=== PATIENT | male | born 1940 | race Two or more races ===

== ENCOUNTER 2019-04-26 19:52 | Emergency (ER) | payer OTHER ==
[~2019-04-26] VITALS: Ht 177.8 cm; Wt 86.2 kg
[2019-04-26] MEDS ORDERED: LIDOCAINE 1%-EPI 1:100,000 20 ML VIAL ONE (20:09)
--- NOTE | 2019-04-26 20:10 | NUR ---
PRESENTED TO THE ER WITH L TOE LACERATION WITH MINIMAL PAIN AND BLEEDING. LAST TDAP: 01/2011.
[2019-04-26] MEDS ORDERED: LIDOCAINE 1%-EPI 1:100,000 20 ML VIAL TP ONE (20:30)
[2019-04-26] MEDS ORDERED: TDAP [DIPH/PERTUSSIS/TET] 0.5 ML VIAL IM ONE ×2 (20:30→20:37)
--- NOTE | 2019-04-26 21:03 | NUR ---
AT [facility] BED SIDE FOR SUTURING.
[2019-04-26] MEDS ORDERED: CEPHALEXIN MONOHYDRATE 500 MG CAPSULE PO ONE ×2 (21:30→21:32)
--- NOTE | 2019-04-26 21:45 | NUR ---
PT W/ 9 INTACT SUTURES ON THE L GRAT TOE. NO BLEEDING OR DISCHARGES. SUTURES WERE COVERED W/ DD AND SPECIAL SHOE WAS PROVIDED. Patient discharged to home in stable condition.RX AND Written and verbal after care instructions given. Patient verbalizes understanding of instruction.
[2019-04-26 22:03] VITALS: BP 148/86
== END 2019-04-26 21:45 | disposition home or self-care (01) ==
LOC: ER 19:54
DX: S91.112A Laceration without foreign body of left great toe without damage to nail, initial encounter (principal); I10 Essential (primary) hypertension; J43.9 Emphysema, unspecified; N40.0 Benign prostatic hyperplasia without lower urinary tract symptoms; Z60.2 Problems related to living alone; W01.198A Fall on same level from slipping, tripping and stumbling with subsequent striking against other object, initial encounter; Y93.89 Activity, other specified; Y92.000 Kitchen of unspecified non-institutional (private) residence as the place of occurrence of the external cause; Y99.8 Other external cause status
CPT/HCPCS: 12002; 90471; 90715; 99283; A6402 ×3; A6403; J3490

== ENCOUNTER 2019-11-22 18:36 | Emergency (ER) | payer OTHER ==
[~2019-11-22] VITALS: Ht 177.8 cm; Wt 90.3 kg
--- NOTE | 2019-11-22 18:47 | NUR ---
[id number] FROM HOME, C/O DIZZINESS, "FEEL SICK", PT AAOX4, -SOB, NAD NOTED, VSS, PENDING MD QUILES
[2019-11-22] MEDS ORDERED: IV NS 0.9% 500 ML BAG IV ONE ×2 (19:00→20:30)
[2019-11-22 19:15] LABS: BASOPHILS # (AUTO) 0.1 /CMM (0.0-0.2); BASOPHILS % (AUTO) 0.6 % (0.0-2.0); EOSINOPHILS % (AUTO) 0.1 % (0.0-6.0); HEMATOCRIT 39 % (39-51); HEMOGLOBIN 12.5 g/dL (13.5-17.5); LYMPHOCYTES # (AUTO) 1.3 /CMM (0.8-4.8); MEAN CORPUSCULAR HGB CONC 32 g/dl (31.0-36.0); MEAN CORPUSCULAR VOLUME 86 fL (80-96); MONOCYTES # (AUTO) 1.1 /CMM (0.1-1.30); MONOCYTES % (AUTO) 8.3 % (2.0-12.0); NEUTROPHILS # (AUTO) 10.4 /CMM (1.8-8.9); PLATELET COUNT (AUTO) 325 /CMM (150-450); RED BLOOD CELL COUNT(AUTO) 4.51 MIL/uL (4.5-6.0); WHITE BLOOD COUNT (AUTO) 12.8 K/uL (4.3-11.0)
--- NOTE | 2019-11-22 19:20 | NUR ---
PT RECEIVED FROM ALLISON VARELA FOR MIGUELINA.PT IN BED AWAKE AND ALERT. NO RESP DISTRESS
--- NOTE | 2019-11-22 19:22 | NUR ---
PT PLACED ON O2 VIA NC @ 2LPM. PT NOTED HAING O2 SAT 90%
--- NOTE | 2019-11-22 19:24 | NUR ---
REPORT GIVEN TO VIKAS COOPER FOR MIGUELINA
[2019-11-22] MEDS ORDERED: ONDANSETRON HCL/PF - ER 4 MG/2 ML VIAL IV ONE (19:30)
[2019-11-22] MEDS ORDERED: ONDANSETRON HCL/PF 4 MG/2 ML VIAL ONE (19:33)
[2019-11-22 19:37] LABS: CALCIUM, SERUM 9.4 mg/dL (8.5-10.1); CARBON DIOXIDE 29 mmol/L (21-32); CHLORIDE 102 mmol/L (98-107); CREATININE 1.4 mg/dL (0.6-1.3); GLUCOSE 164 mg/dL (74-106); POTASSIUM 4.8 mmol/L (3.5-5.1); SODIUM SERUM 137 mmol/L (136-145); UREA NITROGEN, BLOOD 36 mg/dL (7-18)
[2019-11-22 19:42] LABS: ALANINE AMINOTRANSFERASE 28 U/L (12-78); ALBUMIN 3.9 g/dL (3.4-5.0); ALKALINE PHOSPHATASE 64 U/L (46-116); ASPARTATE AMINOTRANSFERASE 20 U/L (15-37); BILIRUBIN,DIRECT 0.1 mg/dL (0.0-0.2); BILIRUBIN,TOTAL 0.2 mg/dL (0.2-1.0); TOTAL PROTEIN, SERUM 7.2 g/dL (6.4-8.2)
--- NOTE | 2019-11-22 20:08 | NUR ---
CALLED [facility]
[2019-11-22] MEDS ORDERED: CT SWABBABLE VALVE TRANS SET 1 EA INFUS.SET MC ONE (20:19)
[2019-11-22] MEDS ORDERED: IV NS 0.9% 250 ML IV ONE (20:19)
[2019-11-22] MEDS ORDERED: IOHEXOL-350 100 ML VIAL IV ONE (20:19)
--- NOTE | 2019-11-22 20:25 | NUR ---
PT TO CT ON VIANEY
--- NOTE | 2019-11-22 20:59 | NUR ---
[facility]ED [facility], CASE ASSIGNED TO DR FRAZIER AWAITING REVIEW AND CALL BACK
--- NOTE | 2019-11-22 21:31 | NUR ---
CALLED [facility], DR MCADAMS NOW REVIEWING CASE SHOULD BE CALLING BACK SOON
[2019-11-22] MEDS ORDERED: IV NS 0.9% 500 ML IV ONE (22:00)
--- NOTE | 2019-11-22 23:19 | NUR ---
Call from [facility]. Pt accepted to [facility] ER by Dr Morales. # for report [phone]. ALS eta [id number]
--- NOTE | 2019-11-23 00:01 | NUR ---
REPORT GIVEN TO ALLISON CROOKS FOR MIGUELINA AT THE [facility]
--- NOTE | 2019-11-23 00:34 | NUR ---
PRN 105 AT BEDSIDE FOR PT TRANSPORT TO [facility]. PT IS IN STABLE CONDITION. REPORT GIVEN
[2019-11-23 00:35] VITALS: BP 150/90
== END 2019-11-23 00:40 | disposition short-term general hospital (02) ==
LOC: ER 18:38
DX: R42 Dizziness and giddiness (principal); R51 Headache; I10 Essential (primary) hypertension; Z60.2 Problems related to living alone
CPT/HCPCS: 36415; 70450; 70496; 70498; 71045; 80048; 80076; 84484; 85025; 85730; 93005; 96374; 99285; J2405; J7030; J7040 ×2; J7050; Q9967

== ENCOUNTER 2024-10-15 12:38 | Inpatient (IN) | payer OTHER ==
[~2024-10-15] VITALS: Ht 172.7 cm; Wt 74.8 kg
[2024-10-15] VITALS (7 sets, daily range): BP systolic 137–160; BP diastolic 76–86; TEMP 98.1–98.8; O2SAT 96–100
[2024-10-15] MEDS: methylPREDNISolone SOD SUCC 125 MG/2ML VIAL IV ONE (13:00)
[2024-10-15] MEDS ORDERED: methylPREDNISolone SOD SUCC 125 MG/2ML VIAL ONE (13:01)
[2024-10-15 13:03] LABS: EOSINOPHILS % (AUTO) 0.1 % (0.0-6.0); HEMOGLOBIN 12.6 g/dL (13.5-17.5); MEAN CORPUSCULAR HEMOGLOBIN 27 PG (26.0-33.0); MONOCYTES # (AUTO) 1.4 K/uL (0.1-1.30)
[2024-10-15] MEDS ORDERED: ALBUTEROL FS 2.5 MG/3 ML VIAL.NEB ONE (13:06)
[2024-10-15] MEDS ORDERED: IPRATROPIUM NEB FS 0.5 MG/2.5 ML AMPUL.NEB ONE (13:07)
[2024-10-15] MEDS: ALBUTEROL FS 2.5 MG/3 ML VIAL.NEB CONTNEB ONE (13:10)
[2024-10-15] MEDS: IPRATROPIUM NEB FS 0.5 MG/2.5 ML AMPUL.NEB NEB ONE (13:10)
[2024-10-15 13:18] LABS: BASOPHILS % (AUTO) 0.1 % (0.0-2.0); HEMATOCRIT 39 % (39-51); LYMPHOCYTES # (AUTO) 0.5 K/uL (0.8-4.8); LYMPHOCYTES % (AUTO) 3.1 % (20.0-44.0); MEAN CORPUSCULAR HGB CONC 32 g/dl (31.0-36.0); MEAN CORPUSCULAR VOLUME 85 fL (80-96); MONOCYTES % (AUTO) 8.5 % (2.0-12.0); NEUTROPHILS # (AUTO) 14.5 K/uL (1.8-8.9); NEUTROPHILS % (AUTO) 88.2 % (43.0-81.0); PLATELET COUNT (AUTO) 244 K/uL (150-450); RED CELL DISTRIBUTION WIDTH 15.6 % (11.5-15.0); WHITE BLOOD COUNT (AUTO) 16.5 K/uL (4.3-11.0)
[2024-10-15 13:20] LABS: CALCIUM, SERUM 8.5 mg/dL (8.5-10.1); CARBON DIOXIDE 27 mmol/L (21-32); CHLORIDE 104 mmol/L (98-107); CREATININE 1.2 mg/dL (0.6-1.3); GLUCOSE 200 mg/dL (74-106); POTASSIUM 4.1 mmol/L (3.5-5.1); SODIUM SERUM 141 mmol/L (136-145); UREA NITROGEN, BLOOD 36 mg/dL (7-18)
[2024-10-15 13:23] LABS: ABG BASE EXCESS 0.1 mmol/L (-2.0-3.0); ABG OXYGEN SATURATION 95.3 % (94.0-98.0); ABG PCO2 32.9 mmHg (35.0-48.0); ABG PH 7.466 (7.350-7.450); ABG PO2 76.1 mmHg (83.0-108.0); ABG TOTAL HEMOGLOBIN 13.1 G/dL (13.5-17.5); COHb 0.3 % (0.5-1.5); MetHb 0.3 % (0.0-1.5); O2Hb 94.7 % (94.0-97.0); SITE, ABG RIGHT RADIAL
[2024-10-15] MEDS: ENOXAPARIN SODIUM 40 MG/0.4 ML DISP.SYRIN SQ SCH (13:30)
[2024-10-15] MEDS: IV NS 0.9% 1,000 ML BAG IV ONE ×2 (13:30→15:00)
[2024-10-15] MEDS ORDERED: LEVOFLOXACIN (250MG) 250 MG TABLET PO SCH (13:30)
[2024-10-15] MEDS: LEVOFLOXACIN 750 MG /D5W 150ML PIGGYBACK IV ONE (13:30)
[2024-10-15] MEDS: ALBUTEROL FS 2.5 MG/0.5 ML VIAL.NEB NEB ONE (13:30)
[2024-10-15] MEDS: LEVOFLOXACIN 750 MG /D5W 150ML 750 MG in PREMIX 1 EA IV ONE (14:00)
[2024-10-15] MEDS ORDERED: ONDANSETRON HCL/PF 4 MG/2 ML VIAL IVP PRN (14:30)
[2024-10-15] MEDS ORDERED: ENOXAPARIN SODIUM 40 MG/0.4 ML DISP.SYRIN SQ SCH (14:30)
[2024-10-15] MEDS ORDERED: MAGNESIUM HYDROXIDE 30 ML UDC PO PRN (14:30)
[2024-10-15] MEDS ORDERED: Z GUARD REMEDY 4 OZ OINT TP PRN (14:30)
[2024-10-15] MEDS ORDERED: MAG HYDROX/AL HYDROX/SIMETH 30 ML UDC PO PRN (14:30)
[2024-10-15] MEDS: methylPREDNISolone SOD SUCC 125 MG/2ML VIAL IV SCH (14:30)
[2024-10-15] MEDS ORDERED: ENOXAPARIN SODIUM 40 MG/0.4 ML DISP.SYRIN SQ ONE (15:14)
[2024-10-15] MEDS: DILTIAZEM HCL IV 125 MG in IV D5W 100 ML IV ONE (16:32)
[2024-10-15] MEDS: DILTIAZEM HCL 25 MG IV IVP ONE (16:32)
[2024-10-15] MEDS: HYDROCODONE/APAP 10/325MG TABLET PO PRN (18:02)
[2024-10-15] MEDS: IPRATROPIUM NEB FS 0.5 MG/2.5 ML AMPUL.NEB NEB SCH (20:18)
[2024-10-15] MEDS: ZOLPIDEM TARTRATE 10 MG TABLET PO PRN (21:55)
[2024-10-16] VITALS (18 sets, daily range): BP systolic 137–173; BP diastolic 79–110; TEMP 97.3–98.6; O2SAT 94–100
[2024-10-16] MEDS ORDERED: ATOR10TA PO (00:35)
[2024-10-16] MEDS ORDERED: TRAZ150T75 PO (00:35)
[2024-10-16] MEDS ORDERED: PYRI50TA15 PO (00:35)
[2024-10-16] MEDS ORDERED: TERA10CA4 PO (00:35)
[2024-10-16] MEDS ORDERED: FINA5TAB11 PO (00:35)
[2024-10-16] MEDS ORDERED: ZOLP5TAB8 PO (00:35)
[2024-10-16] MEDS ORDERED: PANT20TA17 PO (00:35)
[2024-10-16] MEDS ORDERED: CYAN100T44 PO (00:35)
[2024-10-16] MEDS ORDERED: MONT10TA22 PO (00:35)
[2024-10-16] MEDS: CLONIDINE HCL 0.1 MG TABLET PO PRN (00:44)
[2024-10-16] MEDS: CLONIDINE HCL 0.1 MG TABLET PO ONE (05:07)
[2024-10-16] MEDS: MINERAL OIL 133 ML (PYXIS) 1 EA ENEMA RC ONE ×2 (05:54→14:11)
[2024-10-16 06:34] LABS: BASOPHILS % (AUTO) 0.1 % (0.0-2.0); HEMATOCRIT 36 % (39-51); HEMOGLOBIN 11.6 g/dL (13.5-17.5); LYMPHOCYTES # (AUTO) 0.5 K/uL (0.8-4.8); LYMPHOCYTES % (AUTO) 3.3 % (20.0-44.0); MEAN CORPUSCULAR HEMOGLOBIN 27 PG (26.0-33.0); MEAN CORPUSCULAR HGB CONC 32 g/dl (31.0-36.0); MEAN CORPUSCULAR VOLUME 84 fL (80-96); MONOCYTES # (AUTO) 0.8 K/uL (0.1-1.30); MONOCYTES % (AUTO) 5.7 % (2.0-12.0); NEUTROPHILS # (AUTO) 12.7 K/uL (1.8-8.9); NEUTROPHILS % (AUTO) 90.9 % (43.0-81.0); PLATELET COUNT (AUTO) 204 K/uL (150-450); RED CELL DISTRIBUTION WIDTH 15.3 % (11.5-15.0)
[2024-10-16 07:11] LABS: CALCIUM, SERUM 8.3 mg/dL (8.5-10.1); CARBON DIOXIDE 28 mmol/L (21-32); CHLORIDE 104 mmol/L (98-107); CREATININE 0.9 mg/dL (0.6-1.3); GLUCOSE 157 mg/dL (74-106); MAGNESIUM 2.3 mg/dL (1.8-2.4); NT-PRO BNP 3062 pg/mL (0-125); PHOSPHORUS 3.6 mg/dL (2.5-4.9); SODIUM SERUM 140 mmol/L (136-145); UREA NITROGEN, BLOOD 29 mg/dL (7-18)
[2024-10-16] MEDS ORDERED: ACET-868 PO (07:53)
[2024-10-16] MEDS ORDERED: MAGN400T30 PO (07:53)
[2024-10-16] MEDS ORDERED: TIOT18CA3 IH (07:53)
[2024-10-16] MEDS ORDERED: VIT1CAPS9 PO (07:53)
[2024-10-16] MEDS ORDERED: METO25TA6 PO (07:53)
[2024-10-16] MEDS ORDERED: TRAM50TA2 PO (07:53)
[2024-10-16] MEDS ORDERED: DICL100G26 TP (07:53)
[2024-10-16] MEDS ORDERED: ALBU2.5V38 IH (07:53)
[2024-10-16] MEDS: MONTELUKAST SODIUM (10MG) 10 MG TABLET GT SCH (08:32)
[2024-10-16] MEDS: CYANOCOBALAMIN 100 MCG TABLET PO SCH (08:32)
[2024-10-16] MEDS: PANTOPRAZOLE 40 MG VIAL IV SCH (08:32)
[2024-10-16] MEDS: FINASTERIDE (5 MG) 5 MG TABLET PO SCH (08:33)
[2024-10-16] MEDS: PYRIDOXINE HCL 50 MG TABLET PO SCH (08:33)
[2024-10-16] MEDS: ATORVASTATIN 10 MG TABLET PO SCH (08:33)
[2024-10-16] MEDS: TERAZOSIN HCL 5 MG CAPSULE PO SCH (08:33)
[2024-10-16] MEDS: VALSARTAN 80 MG TABLET PO SCH (08:38)
[2024-10-16] MEDS ORDERED: TERAZOSIN HCL PO SCH (09:00)
[2024-10-16 09:05] LABS: THYROID STIMULATING HORMONE 0.15 uIU/mL (0.358-3.74)
[2024-10-16] MEDS: IPRATROPIUM NEB FS 0.5 MG/2.5 ML AMPUL.NEB NEB SCH ×2 (11:30→19:58)
[2024-10-16] MEDS: ALBUTEROL HALF STRENGTH 1.25 MG/3 ML VIAL.NEB NEB SCH (11:30)
[2024-10-16] MEDS: methylPREDNISolone SOD SUCC 125 MG/2ML VIAL IV SCH (12:06)
[2024-10-16] MEDS: POLYETHYLENE GLYCOL 3350 17 GM POWD.PACK PO SCH (12:43)
[2024-10-16] MEDS: LACTULOSE 10 G/15 ML UDC (PYXIS) PO ONE (12:44)
[2024-10-16] MEDS: DILTIAZEM HCL 25 MG IV IV ONE (13:39)
[2024-10-16] MEDS: LEVOFLOXACIN (250MG) 250 MG TABLET PO SCH (14:10)
[2024-10-16] MEDS: LEVALBUTEROL HCL NEB 1.25 MG/0.5 ML VIAL.NEB NEB SCH (14:43)
[2024-10-16] MEDS ORDERED: Medication Not On Formulary EA (Trazodone Hcl 1 TAB) PO SCH (18:00)
[2024-10-16] MEDS: TRAZODONE 50 MG TABLET PO SCH (21:08)
[2024-10-16] MEDS: TAMSULOSIN 0.4 MG CAP.SR.24H PO SCH (21:09)
[2024-10-16] MEDS: ACETAMINOPHEN 325 MG TABLET PO PRN (21:09)
[2024-10-17] VITALS: BP 158/93; TEMP 98; O2SAT 96
[2024-10-17] MEDS ORDERED: PANTOPRAZOLE 40 MG TABLET.DR PO SCH (07:30)
[2024-10-17] MEDS ORDERED: Medication Not On Formulary EA (Vit A/Vit C/Vit E/Zinc/Copper (Preservision Areds Softge PO SCH (09:00)
== END 2024-10-17 02:11 | disposition short-term general hospital (02) | DRG 190 ==
LOC: ER 12:40 → TELE-TD 16:29 → TELE1 10-16 08:15
PROVIDERS: ADMIT Nurse Practitioner Acute Care; ATTEND Nurse Practitioner Acute Care
DX: J44.1 Chronic obstructive pulmonary disease with (acute) exacerbation (principal); J96.21 Acute and chronic respiratory failure with hypoxia; I48.92 Unspecified atrial flutter; I50.32 Chronic diastolic (congestive) heart failure; Z66 Do not resuscitate; I48.0 Paroxysmal atrial fibrillation; Z99.81 Dependence on supplemental oxygen; Z87.891 Personal history of nicotine dependence; R79.1 Abnormal coagulation profile; Z87.01 Personal history of pneumonia (recurrent); R60.0 Localized edema; I11.0 Hypertensive heart disease with heart failure; E78.5 Hyperlipidemia, unspecified; K59.00 Constipation, unspecified; R33.8 Other retention of urine; N40.1 Benign prostatic hyperplasia with lower urinary tract symptoms; D72.829 Elevated white blood cell count, unspecified; D64.9 Anemia, unspecified
CPT/HCPCS: 36415; 71045-TC; 74018; 80048-TC; 80061-TC; 82803-TC; 83605-TC; 83735-TC; 83880; 84100-TC; 84439-TC; 84443-TC; 84484-TC; 85025-TC; 85378-TC; 87040-TC; 93307-TC; 93970-TC; 94760-TC; 94762-TC; 94799-TC; A4216; A4223; G0378; J1650; J1956; J2470; J2919; J3490; J7030